=== PATIENT | male | born 1985 ===

== ENCOUNTER 2022-04-11 09:38 | Emergency (ER) | payer SELFPAY ==
[2022-04-11 10:13] LABS: BASO % 0.2 % (0.0-2.0); EOS # 0.1 K/mm3 (0.0-0.7); EOS % 1.4 % (0.0-4.0); GRAN # 3.7 K/mm3 (1.4-6.5); GRAN % 57.9 % (42.2-75.2); HEMATOCRIT 43.3 % (42.0-52.0); HEMOGLOBIN 15.2 g/dl (13.5-18.0); LYMPH # 2.1 K/mm3 (1.2-3.4); LYMPH % 33.1 % (20.0-51.0); MEAN CELL VOLUME 85 fl (80.0-100.0); MEAN CORPUSCULAR HEMOGLOBIN 30 pg (27-31); MEAN CORPUSCULAR HGB CONC 35 g/dl (33.0-37.0); MEAN PLATELET VOLUME 10.8 fl (7.4-10.4); MONO # 0.5 K/mm3 (0.1-0.6); MONO % 7.1 % (1.7-9.3); PLATELET COUNT 301 K/mm3 (130-400); REDCELL DISTRIBUTION WIDTH-CV 12.7 % (11.5-14.5)
[2022-04-11 10:29] LABS: ALBUMIN 4.2 gm/dL (3.5-5.0); CALCIUM 9.4 mg/dL (8.4-10.2); CREATININE, serum 0.73 mg/dL (0.72-1.25); POTASSIUM 3.8 mmol/L (3.5-4.5)
[2022-04-11 10:49] LABS: BILIRUBIN,TOTAL 0.8 mg/dL (0.2-1.2)
[2022-04-11] MEDS ORDERED: PROTONIX 40MG T40 MG PO (12:00)
[2022-04-11] MEDS ORDERED: NORCO 325 MG-51 TAB PO (12:02)
[2022-04-11 12:29] VITALS: BP 102/60; PULSE 63
== END 2022-04-11 12:30 | disposition home or self-care (01) ==
LOC: COL.ER 09:38
PROVIDERS: Physician Assistant
DX: K29.00 Acute gastritis without bleeding (principal)
CPT/HCPCS: C9113; J2270; J2405; J7030

== ENCOUNTER → 2022-09-17 | Day surgery (SDC) | payer SELFPAY ==
[~2022-09-17] VITALS: Ht 147.3 cm; Wt 64.9 kg
[~2022-09-17] MED LIST: NORCO 325 MG-51 TAB PO; PROTONIX 40MG T40 MG PO
[2022-09-17 09:32] VITALS: BP 112/68; PULSE 63; TEMP 97.5
--- NOTE | 2022-09-17 10:10 | NUR ---
PT ARRIVED TO UNIT WITHOUT BUTTON SEWER HAND; NOTIFIED, PROCEDURE CANCELLED, PT WILL GO TO RAD FOR BARIUM SWALLOW. INTERPRETOR USED VIA "THE VOICE"; PT VERBALIZED UNDERSTANDING, NO FURTHER QUESTIONS AT THIS TIME.
== END ==
LOC: SDCO 08:21
DX: K21.9 Gastro-esophageal reflux disease without esophagitis (principal); Z53.9 Procedure and treatment not carried out, unspecified reason; K59.00 Constipation, unspecified; J02.9 Acute pharyngitis, unspecified; R10.13 Epigastric pain; K92.1 Melena